=== PATIENT | female | born 1945 | race Caucasian/White ===

== ENCOUNTER → 2021-04-13 12:20 | Outpatient (BNVA) | payer MEDICARE, SELFPAY | PROVIDERS: PCP Family Medicine; Visit Provider Specialist | DX: G40.309 Generalized idiopathic epilepsy and epileptic syndromes, not intractable, without status epilepticus (principal); I69.114 Frontal lobe and executive function deficit following nontraumatic intracerebral hemorrhage | CPT/HCPCS: 99205 ==

== ENCOUNTER → 2021-04-20 15:02 | Outpatient (BNVA) | payer MEDICARE, SELFPAY | PROVIDERS: PCP Family Medicine; Visit Provider Specialist | DX: G40.309 Generalized idiopathic epilepsy and epileptic syndromes, not intractable, without status epilepticus (principal); G93.41 Metabolic encephalopathy | CPT/HCPCS: 95816 ==